=== PATIENT | female | born 1990 | race African-American/Black ===

== ENCOUNTER 2021-11-13 13:15 | Emergency (ER) | payer MEDICARE, MEDICAID, SELFPAY ==
[2021-11-13 13:15] VITALS: BP 131/85; PULSE 80; RESP 18; TEMP 36.8; O2SAT 100; BMI 35.9
--- NOTE | 2021-11-13 15:31 | HMH.EDUTC ---
[facility] [place] Disposition Clinical Impression: Abscess of left thigh Disposition: Home, Self-Care Condition on Discharge: Good Instructions: DI for Skin Abscess Additional Instructions: Keep the affected area clean. Follow up with your regular doctor. Take the antibiotics as directed and apply the topical antibiotics as directed. Apply warm wet compresses to the affected area three or four times per day. GO TO THE ER FOR ANY WORSENING SYMPTOMS Prescriptions: Sulfamethoxazole/Trimethoprim [Bactrim DS tablet] 1 each PO BID 10 Days #20 tab Transmission Status: Received by [id number] Mupirocin [Bactroban 2% Ointment 22gm tube] 1 applicatio TP TID 7 Days #1 gm Transmission Status: Received by [id number] cephALEXin [cephALEXin 500mg capsule] 500 mg PO Q6H 10 Days #40 cap Transmission Status: Received by [id number] Referrals: Yari Mchugh PA [Primary Care Provider] - Time of Disposition: 15:36 Medical Decision Making - Medical Records Medical records reviewed: No: I reviewed the patient's medical records. - Justo Inquiry Pt receiving controlled substance: No Vital Signs: 11/13/21 13:15 11/13/21 15:43 Temperature 98.2 F 98.2 F Temperature Source Oral Oral Pulse Rate 80 Pulse Rate [Right Radial] 80 Respiratory Rate 18 18 Blood Pressure 131/85 Blood Pressure [Right Arm] 131/85 Blood Pressure Mean [Right Arm] 100 Blood Pressure Source Automatic Cuff Blood Pressure Source [Right Arm] Automatic Cuff Blood Pressure Position Sitting Blood Pressure Position [Right Arm] Sitting 02 Sat by Pulse Oximetry 100 Oxygen Delivery Method Room Air Room Air [facility] [place] HPI - General Stated complaint: injection Time Seen by Provider: 11/13/21 13:35 Mode of Arrival: Ambulatory Source of Information: Patient Limitations: No Limitations Description of Symptoms (Recalled from Triage Doc. by RN): Pt stated that she has a boil on her inner thigh. She noticed it last wednesday and this could be her HS or spider bite. HEENT Symptoms (Recalled from RN notes): No Resp Symptoms (Recalled from RN notes): No Skin Symptoms (Recalled from RN notes): Yes (boil) MS Symptoms (Recalled from RN notes): No Functional Status (Recalled from RN notes): n/a - History of Present Illness Provider Complaint: She states that she has a history of Hidradenitis suppurativa. She has a long history of getting boils on her upper legs. She states that she has one now on her left inner thight that has been present for the past 4 days. She denies nay fever or chills. She states that she usually gets antibiotics and they get better. - Related Data Previous Rx's Medication Instructions Recorded Mupirocin [Bactroban 2% Ointment 1 applicatio TP TID 7 Days #1 gm 11/13/21 22gm tube] Sulfamethoxazole/Trimethoprim 1 each PO BID 10 Days #20 tab 11/13/21 [Bactrim DS tablet] cephALEXin [cephALEXin 500mg 500 mg PO Q6H 10 Days #40 cap 11/13/21 capsule] Allergies Allergy/AdvReac Type Severity Reaction Status Date / Time lamotrigine [From Lamictal] Allergy Verified 11/13/21 15:35 - Worker's Comp Is this a Worker's Comp case?: No [facility] History - Hepatitis A Screen Drug use history?: No High risk sexual behaviors?: No History of sexually transmitted infection?: No Currently employed?: No Childcare worker?: No Do you have indoor plumbing?: Yes Do you have electricity?: Yes Attestation statement:: This patient has been screened for Hepatitis A risk factors. I have reviewed the patient's past medical history: Yes ROS Obtained: Yes All systems reviewed & no additional complaints - Constitutional Constitutional: Denies chills, Denies fever(s) - Eyes Eyes: Denies eye discharge - ENT Ears, Nose, Mouth, and Throat: Denies sore throat - Cardiovascular Cardiovascular: Denies chest pain - Respiratory Respiratory: Denies chest congestion, Denies cough Physical Exam - General
[2021-11-13 15:43] VITALS: BP 131/85; PULSE 80; RESP 18; TEMP 36.8; O2SAT 100
== END 2021-11-13 15:43 | disposition home or self-care (01) ==
PROVIDERS: Emergency Provider Nurse Practitioner Family; PCP Physician Assistant
DX: L02.416 Cutaneous abscess of left lower limb (principal)
CPT/HCPCS: G0463; 99212

== ENCOUNTER 2022-12-10 10:58 | Emergency (ER) | payer MEDICARE, MEDICAID, SELFPAY ==
[2022-12-10 11:10] VITALS: BP 150/93; PULSE 105; RESP 18; TEMP 36.8; O2SAT 100; BMI 40.6
--- NOTE | 2022-12-10 11:15 | EXP.UTC ---
Discharge Plan Disposition Patient Disposition: Home, Self-Care Condition: Good Prescriptions Prescriptions: New levofloxacin [levofloxacin] 500 mg tablet 500 mg PO DAILY Qty: 7 0RF guaifenesin [Mucinex] 600 mg tablet extended release 12hr 600 - 1,200 mg PO BIDP PRN (Reason: Congestion) Qty: 30 0RF promethazine-DM 6.25-15 mg/5 mL Syrup 5 ml PO Q6H PRN (Reason: Cough) Qty: 240 0RF prednisone 10 mg tablet 10 mg PO DIRECTED 9 Days Qty: 21 0RF Rx Instructions: Take 4 tablets daily for 3 days, then take 2 tablets daily for 3 days, then take 1 tablet daily for 3 days, then stop. No Action clarithromycin 500 mg tablet 500 mg PO BID Label Comments: TAKE ONE TABLET BY MOUTH TWICE DAILY FOR 10 DAYS methotrexate sodium 2.5 mg tablet 6 mg PO WEEKLY Label Comments: Take 6 Tablet(s) by mouth once weekly Rx Instructions: wednesday sertraline 25 mg tablet 25 mg PO DAILY Label Comments: Take 1 tablet by mouth every evening folic acid 1 mg tablet 1 mg PO DAILY Label Comments: Take 1 Tablet(s) by mouth everyday hydroxyzine HCl 25 mg tablet 25 mg PO DAILY Label Comments: Take 1 tablet by mouth four times a day methylprednisolone 4 mg tablets,dose pack See Rx Instructions .ROUTE .COMPLEX Label Comments: take as directed daily on package for 6 days Rx Instructions: medrol albuterol sulfate 90 mcg/actuation HFA aerosol inhaler 1 puff INHALATION NEEDED PRN (Reason: .) Label Comments: use two puffs EVERY 4-6 hOURS NEEDED budesonide-formoterol 160-4.5 mcg/actuation HFA aerosol inhaler 1 puff INHALATION DAILY Label Comments: INHALE TWO PUFFS TWICE DAILY DIRECTED levocetirizine 5 mg tablet 5 mg PO DAILY Label Comments: TAKE ONE TABLET BY MOUTH EVERY DAY Humira(CF) Pen 40 mg/0.4 mL pen injector kit See Rx Instructions .ROUTE .COMPLEX Rx Instructions: once every 2 wks Referrals Follow up/Referrals: Yari Mchugh PA [Primary Care Provider] - See instructions Activity Restrictions/Add. Instructions Additional Instructions/Restrictions: Drink plenty of fluids. Take tylenol or ibuprofen for pain or fever. Stop the azithromycin that you are on and then start the levaquin. Take the medications as directed. Follow up with your regular doctor. GO TO THE ER FOR ANY WORSENING SYMPTOMS Don't start the oral steroids until tomorrow, since you had the shot here today. The cough medication (promethazine dm) will make you drowsy, so don't drive or operate heavy machinery after taking it. Clinical Impressions Clinical Impression: Asthma exacerbation Stand Alone Forms Stand Alone Forms: Work/School Release Instructions Patient Instructions: Asthma -- Adult, DI for Asthma -- Adult, Ceftriaxone Injection, Methylprednisolone Injection Discharge ED Provider: Dario Humphreys [facility] General Stated complaint: SOA Time Seen by Provider: 12/10/22 11:15 History of Present Illness Provider Complaint: She states that for the past 5 days she has had worsening chest congestion. She has a history of asthma. She was started on a z-pack 4 days ago by her pcp over a video visit. Related Data Home Medications Medication Instructions Recorded Confirmed adalimumab 40 mg/0.4 mL See Rx Instructions .Route 12/10/22 12/10/22 subcutaneous pen kit (Humira(CF) .COMPLEX . Pen) albuterol sulfate 90 mcg/actuation 1 puff inhalation NEEDED PRN . 12/10/22 12/10/22 aerosol inhaler budesonide-formoterol HFA 160 1 puff inhalation DAILY .; 12/10/22 12/10/22 mcg-4.5 mcg/actuation aerosol inhaler clarithromycin 500 mg tablet 500 mg PO BID . 12/10/22 12/10/22 folic acid 1 mg tablet 1 mg PO DAILY . 12/10/22 12/10/22 hydroxyzine HCl 25 mg tablet 25 mg PO DAILY . 12/10/22 12/10/22 levocetirizine 5 mg tablet 5 mg PO DAILY allergies 12/10/22 12/10/22 m
--- NOTE | 2022-12-10 11:17 | XR_ITS ---
FINAL REPORT CLINICAL HISTORY: SOA, congestion x 1 wk. Hx asthma. COMPARISON: none FINDINGS: Two views of the chest were obtained. The heart size and pulmonary vascularity are within normal limits. The mediastinum is normal. No acute pulmonary abnormality is identified. There is no pneumothorax. The bony thorax is intact. IMPRESSION: No active cardiopulmonary disease. Reviewed, Interpreted and Dictated by Onel Hinkle III, MD Transcribed by Abi Krause Authenticated and . [facility]
[2022-12-10 12:46] VITALS: BP 162/72; PULSE 105; RESP 18; TEMP 36.8; O2SAT 100
== END 2022-12-10 12:45 | disposition home or self-care (01) ==
PROVIDERS: Emergency Provider Nurse Practitioner Family; PCP Physician Assistant
DX: J45.901 Unspecified asthma with (acute) exacerbation (principal); R06.02 Shortness of breath
CPT/HCPCS: 71046; 96372; 99212; 99214; G0463; J0696

== ENCOUNTER 2024-08-17 15:42 | Emergency (ER) | payer BC, MEDICARE, MEDICAID, SELFPAY ==
--- NOTE | 2024-08-17 16:30 | ED_ITS ---
Discharge Plan Disposition Patient Disposition: Home, Self-Care Condition: Good Prescriptions Prescriptions: New amoxicillin 500 mg tablet 500 mg PO TID 10 Days Qty: 30 0RF methylprednisolone 4 mg Tablets,Dose Pack 4 mg PO DIRECTED 6 Days Qty: 21 0RF Rx Instructions: Take 1 pack as directed for 6 days [id number] [Bromfed DM] 2-30-10 mg/5 mL Syrup 5 ml PO Q6H PRN (Reason: Cough) Qty: 240 0RF No Action methotrexate sodium 2.5 mg tablet 6 mg PO WEEKLY Patient Comments: Take 6 Tablet(s) by mouth once weekly Rx Instructions: wednesday sertraline 25 mg tablet 25 mg PO DAILY Patient Comments: Take 1 tablet by mouth every evening hydroxyzine HCl 25 mg tablet 25 mg PO DAILY Patient Comments: Take 1 tablet by mouth four times a day albuterol sulfate 90 mcg/actuation HFA aerosol inhaler 1 puff INHALATION NEEDED PRN (Reason: .) Patient Comments: use two puffs EVERY 4-6 hOURS NEEDED levocetirizine 5 mg tablet 5 mg PO DAILY Patient Comments: TAKE ONE TABLET BY MOUTH EVERY DAY Humira(CF) Pen 40 mg/0.4 mL pen injector kit See Rx Instructions .ROUTE .COMPLEX Rx Instructions: once every 2 wks Referrals Follow up/Referrals: Yari Mchugh PA [Primary Care Provider] - See instructions Activity Restrictions/Add. Instructions Additional Instructions/Restrictions: Drink plenty of fluids. Take tylenol or ibuprofen for pain or fever. Take the medications as directed. Follow up with your regular doctor. GO TO THE ER FOR ANY WORSENING SYMPTOMS Clinical Impressions Clinical Impression: Pharyngitis Stand Alone Forms Stand Alone Forms: Work/School Release Instructions Patient Instructions: Sore Throat, DI for Pharyngitis/Tonsillopharyngitis -- Adult Print Language Print Language: Welsh Discharge ED Provider: Dario Humphreys [facility] General Stated complaint: diff swallowing, body aches, Time Seen by Provider: 08/17/24 16:30 Related Data Home Medications ?Medication ?Instructions ?Recorded ?Confirmed adalimumab 40 mg/0.4 mL See Rx Instructions .Route 12/10/22 08/17/24 subcutaneous pen kit (Humira(CF) .COMPLEX . Pen) albuterol sulfate 90 mcg/actuation 1 puff inhalation NEEDED PRN . 12/10/22 08/17/24 aerosol inhaler hydroxyzine HCl 25 mg tablet 25 mg PO DAILY . 12/10/22 08/17/24 levocetirizine 5 mg tablet 5 mg PO DAILY allergies 12/10/22 08/17/24 methotrexate sodium 2.5 mg tablet 6 mg PO WEEKLY . 12/10/22 08/17/24 sertraline 25 mg tablet 25 mg PO DAILY Depression 12/10/22 08/17/24 Previous Rx's ?Medication ?Instructions ?Recorded amoxicillin 500 mg tablet 500 mg PO TID 10 days #30 tabs 08/17/24 nyvrsceguvyazmp-mzbmjscbqzfrofr-NF 5 ml PO Q6H PRN Cough #240 mL 08/17/24 2 mg-30 mg-10 mg/5 mL oral syrup (Bromfed DM) methylprednisolone 4 mg tablets in 4 mg PO DIRECTED 6 days #21 tabs 08/17/24 a dose pack Allergies Allergy/AdvReac Type Severity Reaction Status Date / Time lamotrigine (From Lamictal) Allergy Verified 12/10/22 11:29 [facility] Disclaimer: The information contained in this section may have been updated after the patient was seen, as this information can be updated by other users. Social History (Updated 12/10/22 @ 15:30 by Dario Humphreys APRN) Smoking Status: Never smoker alcohol intake: never current occupational status: employed and student Travel in the last 8 weeks: None Have you lived/traveled outside [place] in past 30 days?: No Contact w/someone who lives/traveled outside [place] past 30 days?: No Exposure to someone with infectious disease in past 14 days?: No Do you have a fever (greater than 100.4 F or 38 C)?: No Have you tested positive for COVID-19: No Exposed to someone with COVID-19 in past 14 days?: No Do you have a sore throat?: No Do you have a cough?: No Do you have any weakness?: No Do you have any diarrhea?: No Are you experiencing any unusual bleeding?: No Do you have any muscle aches/pain?: Yes Do you have any abdominal pain?: No Are you experiencing loss of taste or smell?: No ROS Obtained: Yes All systems reviewed & no additional complaints except as documented Constitutional Constitutional: Reports chills and Reports fever(s) Eyes Eyes: Denies eye discharge ENT Ears, Nose, Mouth, and Throat: Reports as per HPI Cardiovascular Cardiovascular: Denies chest pain Respiratory Respiratory: Denies chest congestion and Reports cough Gastrointestinal Gastrointestingal: Reports nausea; Denies abdominal pain, constipation, crampin g, diarrhea or vomiting Musculoskeletal Musculoskeletal: Denies arthralgias Integumentary/Breasts Skin/Breast: Denies rash Neurologic Neurologic: Denies paresthesias Physical Exam General General appearance: alert and in no apparent distress Head Head exam: atraumatic, normocephalic and normal inspection Eye Eye exam: Present normal appearance, PERRL and EOMI ENT ENT exam: Present mucous membranes moist and normal external ear exam Expanded ENT Exam TM/Canal exam: Bilateral TM: erythema and bulging Nose exam: Absent sinus tenderness Mouth exam: Present normal external inspection; Absent drooling Teeth exam: Present normal inspection Throat exam: Present tonsillar erythema, tonsillomegaly and tonsillar exudate Neck Neck exam: Present normal inspection, full ROM and trachea midline; Absent tenderness, meningismus or lymphadenopathy Chest Chest inspection: Present normal inspection and symmetric chest wall rise; Absent tenderness Respiratory Respiratory exam: Present normal lung sounds bilaterally; Absent respiratory distress, wheezes, stridor or accessory muscle use Cardiovascular Cardiovascular exam: Present regular rate and normal rhythm; Absent systolic murmur or diastolic murmur Abdominal Exam Abdominal exam: Present soft and normal bowel sounds; Absent distention, tenderness, guarding, rebound or rigidity Extremities Exam Extremities exam: Present normal inspection and normal capillary refill; Absent calf tenderness Back Exam Back exam: Present normal inspection and full ROM; Absent tenderness, CVA tenderness (R) or CVA tenderness (L) Neurological Exam Neurological exam: Present alert, oriented X3 and CN II-XII intact Psychiatric Psychiatric exam: Present normal affect and normal mood Skin Skin exam: Present warm, dry, intact and normal color Medical Decision Making Medical Records Medical records reviewed: No I reviewed the patient's medical records. Screening: Per USPSTF and CDC recommendations, given the prevalence of disease in our region, it is our hospital?s policy to screen for HIV and viral Hepatitis for all patients aged 18 and over and those with ongoing risk factors. Justo Inquiry Pt receiving controlled substance: No Lab Data Lab results reviewed: Yes I reviewed the patient's lab results.
[2024-08-17 16:31] VITALS: BP 132/83; PULSE 98; RESP 16; TEMP 36.8; O2SAT 100; BMI 24.0
[2024-08-17 16:38] LABS: UTC Strep Screen (Rapid) Negative (Negative)
[2024-08-17 16:59] VITALS: BP 132/83; PULSE 98; RESP 16; TEMP 36.8
== END 2024-08-17 17:03 | disposition home or self-care (01) ==
PROVIDERS: Emergency Provider Nurse Practitioner Family; PCP Physician Assistant
DX: J02.9 Acute pharyngitis, unspecified (principal)
CPT/HCPCS: 87880; 99213; G0381

== ENCOUNTER 2024-09-20 12:43 | Emergency (ER) | payer BC, MEDICARE, MEDICAID, SELFPAY ==
[2024-09-20] VITALS (7 sets, daily range): BP systolic 105–121; BP diastolic 76–91; PULSE 77–104; RESP 16; TEMP 36.6–36.9; O2SAT 99–100; BMI 25.4
--- NOTE | 2024-09-20 13:08 | ED_ITS ---
Discharge Plan Disposition Patient Disposition: Home, Self-Care Condition: Good Prescriptions Prescriptions: New ondansetron 4 mg tablet,disintegrating 4 mg PO Q8H PRN (Reason: nausea and vomiting) 4 Days Qty: 12 0RF No Action pilocarpine HCl 5 mg tablet 5 mg PO TIDP PRN (Reason: sjogren) Mounjaro 5 mg/0.5 mL pen injector 5 mg SQ WEEKLY albuterol sulfate 90 mcg/actuation HFA aerosol inhaler 1 puff INHALATION NEEDED PRN (Reason: .) Patient Comments: use two puffs EVERY 4-6 hOURS NEEDED levocetirizine 5 mg tablet 5 mg PO DAILY Patient Comments: TAKE ONE TABLET BY MOUTH EVERY DAY Referrals Follow up/Referrals: Yari Mchugh PA [Primary Care Provider] - See instructions Activity Restrictions/Add. Instructions Additional Instructions/Restrictions: You were evaluated in the emergency department today. Please picker tender your prescription for Zofran and take as needed for nausea and vomiting. Take Tylenol and ibuprofen every 4-6 hours as needed for body aches, pain, fever. Orally hydrate is much as possible. Eat a bland diet until your symptoms have resolved. Follow-up closely with your primary care provider. Return to the emergency department for new or worsening symptoms. Clinical Impressions Clinical Impression: Nausea, vomiting and diarrhea, Hypokalemia Stand Alone Forms Stand Alone Forms: Work/School Release Instructions Patient Instructions: DI for Diarrhea and Traveler's Diarrhea -- Adult, DI for Nausea -- Adult Print Language Print Language: Austrian Discharge ED Provider: Kaycee Conti General Adult HPI General Chief complaint: Nausea/Vomiting/Diarrhea Stated complaint: vomiting diarrhea lower back pain Time Seen by Provider: 09/20/24 12:54 Mode of Arrival: Ambulatory Source of Information: Patient Limitations: No Limitations Description of Symptoms (Recalled from ER Triage Doc. by RN): Patient reports N/V/D for 3 days. History of Present Illness HPI narrative: This patient is a 34-year-old female with a past medical history of Sjogren's, diabetes, asthma and prior cholecystectomy presenting to the emergency department for evaluation with concern for nausea, vomiting, and diarrhea that started Wednesday. Patient states that she is also having some low back pain and generalized abdominal pain. Emesis is nonbloody nonbilious, diarrhea is nonbloody. She is currently on her menstrual period. She denies any localizable abdominal pain to 1 specific area, dysuria, urinary frequency, or other concerns. Related Data Home Medications ?Medication ?Instructions ?Recorded ?Confirmed albuterol sulfate 90 mcg/actuation 1 puff inhalation NEEDED PRN . 12/10/22 09/20/24 aerosol inhaler levocetirizine 5 mg tablet 5 mg PO DAILY allergies 12/10/22 09/20/24 pilocarpine HCl 5 mg tablet 5 mg PO TIDP PRN sjogren 09/20/24 09/20/24 tirzepatide 5 mg/0.5 mL 5 mg SQ WEEKLY type 2 diabetes 09/20/24 09/20/24 subcutaneous pen injector (Josh) Previous Rx's ?Medication ?Instructions ?Recorded ondansetron 4 mg disintegrating 4 mg PO Q8H PRN nausea and 09/20/24 tablet vomiting 4 days #12 tabs Allergies Allergy/AdvReac Type Severity Reaction Status Date / Time lamotrigine (From Lamictal) Allergy Verified 12/10/22 11:29 [facility] Disclaimer: The information contained in this section may have been updated after the patient was seen, as this information can be updated by other users. Medical History (Updated 09/20/24 @ 13:42 by Kaycee Conti DO) Diabetes Sjogren syndrome Seasonal allergies Asthma Social History Smoking Status: Never smoker alcohol intake: never current occupational status: employed and student Travel in the last 8 weeks: None Have you lived/traveled outside [place] in past 30 days?: No Contact w/someone who lives/traveled outside [place] past 30 days?: No Exposure to someone with infectious disease in past 14 days?: No Do you have a fever (greater than 100.4 F or 38 C)?: No Have you tested positive for COVID-19: No Exposed to someone with COVID-19 in past 14 days?: No Do you have a sore throat?: No Do you have a cough?: No Do you have any weakness?: No Do you have any diarrhea?: Yes Are you experiencing any unusual bleeding?: No Do you have any muscle aches/pain?: No Do you have any abdominal pain?: No Are you experiencing loss of taste or smell?: No ROS Obtained: Yes All systems reviewed & no additional complaints except as documented Physical Exam General General appearance: alert and in no apparent distress Head Head exam: atraumatic and normocephalic Eye Eye exam: Present normal appearance, PERRL and EOMI ENT ENT exam: Present normal exam, normal oropharynx, mucous membranes moist and normal external ear exam Neck Neck exam: Present normal inspection, full ROM and trachea midline; Absent tenderness Chest Chest inspection: Present normal inspection and symmetric chest wall rise; Absent tenderness Respiratory Respiratory exam: Present normal lung sounds bilaterally; Absent respiratory distress, wheezes, stridor or accessory muscle use Cardiovascular Cardiovascular exam: Present regular rate and normal rhythm Abdominal Exam Abdominal exam: Present soft; Absent distention, tenderness, guarding or rebound Extremities Exam Extremities exam: Present normal inspection, full ROM and normal capillary refill; Absent tenderness or edema Back Exam Back exam: Present normal inspection and full ROM; Absent tenderness Neurological Exam Neurological exam: Present alert, oriented X3, CN II-XII intact and normal gait; Absent motor sensory deficit Psychiatric Psychiatric exam: Present normal affect and normal mood Skin Skin exam: Present warm and dry Medical Decision Making Medical Records Medical records reviewed: Yes I reviewed the patient's medical records. Screening: Per USPSTF and CDC recommendations, given the prevalence of disease in our region, it is our hospital?s policy to screen for HIV and viral Hepatitis for all patients aged 18 and over and those with ongoing risk factors. Justo Inquiry Pt receiving controlled substance: No Vital Signs: 09/20/24 12:44 09/20/24 13:00 09/20/24 13:30 Temperature 98.5 F Temperature Source Oral Pulse Rate 90 97 H Pulse Rate [Radial] 104 H Respiratory Rate 16 Blood Pressure 115/82 105/76 L Blood Pressure [Right Arm] 119/85 Blood Pressure Mean Blood Pressure Mean [Right Arm] 96 Blood Pressure Source Blood Pressure Source [Right Arm] Automatic Cuff Blood Pressure Position Blood Pressure Position [Right Arm] Sitting 02 Sat by Pulse Oximetry 100 99 100 Oxygen Delivery Method Room Air Room Air Room Air 09/20/24 13:49 09/20/24 14:30 09/20/24 15:00 Temperature Temperature Source Pulse Rate 96 H 100 H 93 H Pulse Rate [Radial] Respiratory Rate Blood Pressure 116/91 H 112/77 121/77 Blood Pressure [Right Arm] Blood Pressure Mean 88 86 Blood Pressure Mean [Right Arm] Blood Pressure Source Blood Pressure Source [Right Arm] Blood Pressure Position Blood Pressure Position [Right Arm] 02 Sat by Pulse Oximetry 99 100 100 Oxygen Delivery Method Room Air Room Air Room Air 09/20/24 15:11 Temperature 97.9 F Temperature Source Oral Pulse Rate 77 Pulse Rate [Radial] Respiratory Rate 16 Blood Pressure 121/77 Blood Pressure [Right Arm] Blood Pressure Mean Blood Pressure Mean [Right Arm] Blood Pressure Source Automatic Cuff Blood Pressure Source [Right Arm] Blood Pressure Position Sitting Blood Pressure Position [Right Arm] 02 Sat by Pulse Oximetry Oxygen Delivery Method Room Air Lab Data Lab results reviewed: Yes I reviewed the patient's lab results. Lab Results 09/20/24 13:08: Urine Color Yellow, Urine Appearance Sl cloudy, Urine pH 6.5, Ur Specific Velpen 1.025, Urine Protein 1+ A, Urine Glucose (UA) Negative, Urine Ketones 1+, Urine Blood 3+ A, Urine Nitrate Negative, Urine Bilirubin 1+ A, Urine Urobilinogen 1.0, Ur Leukocyte Esterase Negative, Urine RBC 50-100, Urine WBC Occasional, Ur Squamous Epith Cells 3-5, Urine Bacteria Trace, Urine Mucus Trace 09/20/24 13:18: WBC 9.7, RBC 4.75, Hgb 13.3, Hct 40.0, MCV 84.2, MCH 28.0, MCHC 33.3, RDW 13.7, Plt Count 333, MPV 9.8, Neut % (Auto) 73.6, Lymph % (Auto) 20.7, [place] % (Auto) 3.9, Eos % (Auto) 1.5, Baso % (Auto) 0.1, Neut # (Auto) 7.1, Lymph # (Auto) 2.0, [place] # (Auto) 0.4, Eos # (Auto) 0.2, Baso # (Auto) 0.0, Sodium 135 L, Potassium 3.2 L, Chloride 100, Carbon Dioxide 32 H, Anion Gap 6.2, BUN 5 L, Creatinine 0.70, Estimated Creat Clear 100, Estimated GFR 95, Est GFR ( Amer) 115, Glucose 100, Calcium 9.2, Magnesium 1.9, Total Bilirubin 0.5, AST 22, ALT 15, Alkaline Phosphatase 94, Total Protein 7.9, Albumin 4.7, Globulin 3.2, Albumin/Globulin Ratio 1.5, Lipase 106, Serum HCG, Qual Negative, HCV Ab DEBI w/Rflx PCR Qn Negative, HIV Ag/Ab Combo Qual Negative 09/20/24 13:18 09/20/24 13:18 Orders (Tests/Meds): ED MEDICATIONS Discontinued Medications Generic Name Dose Route Start Last Admin Trade Name Freq PRN Reason Stop Dose Admin Acetaminophen 1,000 mg 09/20/24 13:07 09/20/24 13:15 Acetaminophen 1,000mg/100ml Vial IV 09/20/24 13:08 1,000 mg ONCE ONE Administration Lactated Ringer's 1,000 mls @ 999 mls/hr 09/20/24 13:07 09/20/24 13:16 Lactated Ringer's 1000 Ml Bag IV 09/20/24 14:07 999 mls/hr .Q1H1M ONE Administration Potassium Chloride/Water 100 mls @ 100 mls/hr 09/20/24 13:53 09/20/24 13:57 Potassium Chloride 10meq/100ml Ivpb IV 09/20/24 14:52 100 mls/hr ONCE ONE Administration Ketorolac Tromethamine 15 mg 09/20/24 13:07 09/20/24 13:15 Ketorolac 30mg/Ml Vial IV 09/20/24 13:08 15 mg ONCE ONE Administration Ondansetron HCl 4 mg 09/20/24 13:07 09/20/24 13:16 Ondansetron 4mg/2ml Vial IV 09/20/24 13:08 4 mg ONCE ONE Administration Potassium Chloride 40 meq 09/20/24 13:41 09/20/24 13:47 Potassium Chloride 20meq Tab PO 09/20/24 13:42 40 meq ONCE ONE Administration Promethazine HCl 25 mg 09/20/24 13:54 09/20/24 13:57 Promethazine Hcl 25mg/Ml 1ml Vial IV 09/20/24 13:55 25 mg ONCE ONE Administration Sodium Chloride 25 ml 09/20/24 13:54 09/20/24 13:57 Sodium Chloride 0.9% 25ml Bag IV 09/20/24 13:55 25 ml ONCE ONE Administration ORDERS Category Date Time Status Complete Blood Count Auto Diff Stat Lab 09/20/24 13:18 Completed Comprehensive Metabolic Panel Stat Lab 09/20/24 13:18 Completed HIV Combo Stat Lab 09/20/24 13:18 Completed Hepatitis C Ab Qual. W/ RFX Stat Lab 09/20/24 13:18 Completed Lipase Stat Lab 09/20/24 13:18 Completed MAG [Magnesium] Stat Lab 09/20/24 13:18 Completed Serum [HCG Qualitative, Serum] Stat Lab 09/20/24 13:18 Completed UA [Urinalysis and Microscopic] Stat Lab 09/20/24 13:08 Completed Medical Decision Narrative: In summary, this patient is a 34-year-old female presenting to the Emergency Department for evaluation of nausea, vomiting, and diarrhea. Differential diagnoses considered include but are not limited to viral gastroenteritis, bacterial gastroenteritis, colitis, dehydration, electrolyte derangements. Ruling out the most morbid conditions drove assessment. It should be noted patient's history includes diabetes, Sjogren's syndrome, asthma which may or may not be at goal therapy. This complicates all aspects of care by increasing patient's risk for morbidity. On exam, the patient is lying in bed in no acute distress with benign abdominal exam. Given the absence of localizable pain or significant tenderness, doubt surgical intra-abdominal pathology. 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 Workup included CBC, CMP, lipase, magnesium, urinalysis, diarrhea panel. Patient was given a bolus of IV fluids as well as IV Zofran, acetaminophen, and Toradol for symptomatic improvement. On reassessment, the patient is resting comfortably. Labs obtained and reassuring with no significant leukocytosis. She does have very mild hyponatremia and hypokalemia, for which I ordered oral replacement of potassium as well as IV fluids. She unfortunately got choked up on the potassium and had vomiting. Given this, I gave her IV Phenergan as well as 1 round of IV potassium. She tolerated this well with no recurrence of vomiting and was able to tolerate oral intake afterward. She is not able to provide stool specimen here. On reassessment, abdominal exam remained benign and she is able to tolerate oral intake. Given this, I feel that she is appropriate for discharge home with diagnosis of gastroenteritis and prescription for Zofran. Strict return precautions were given as well as instructions for close follow-up with primary care. Critical Care Critical Care Time Critical Care Time: No
--- NOTE | 2024-09-20 13:14 | PC.NURSE ---
ROUNDED ON THE PT. THE PT VOICES THAT SHE DOES NOT NEED ANYTHING AT THIS TIME. CALL LIGHT IS WITHIN REACH OF THE PT.
[2024-09-20] MEDS: ACETAMINOPHEN 1,000MG/100ML VIAL 1000 MG IV (13:15)
[2024-09-20] MEDS: KETOROLAC 30MG/ML VIAL 15 MG IV (13:15)
[2024-09-20 13:16] LABS: Microscopic, Urine URINE MICROSCOPIC (MICROSCOPIC)
[2024-09-20] MEDS: ONDANSETRON 4MG/2ML VIAL 4 MG IV (13:16)
[2024-09-20] MEDS: LACTATED RINGERS 1000ML 1,000 ML 999 ML IV (13:16)
[2024-09-20 13:18] LABS: Appearance,Urine SL CLOUDY (Clear); Blood, Urine 3+ (Negative); Color,Urine YELLOW (Yellow); Glucose,Urine (UA) Negative (Negative); Ketones,Urine 1+ (Negative); Leukocyte Esterase,Urine Negative (Negative); Nitrate,Urine Negative (Negative); PH,Urine 6.5 (5.0-8.5); Protein,Urine 1+ (Negative); Specific Gravity, Urine 1.025 (1.005-1.030)
[2024-09-20 13:19] LABS: Bilirubin,Urine 1+ (Negative)
[2024-09-20 13:26] LABS: Bacteria,Urine Trace /lpf; Mucus,Urine Trace /lpf; RBC,Urine 50-100 #/hpf (0-3); WBC,Urine Occasional #/hpf (0-3)
[2024-09-20 13:29] LABS: Basophils % 0.1 % (0.1-2.0); Eosinophils # 0.2 K/mm3 (0.0-0.4); Eosinophils % 1.5 % (0.1-12.0); Hemoglobin 13.3 g/dL (12.2-16.2); Lymphocytes % 20.7 % (10-50); Mean Corpuscular HGB Conc 33.3 g/dL (31.8-35.4); Mean Corpuscular Volume 84.2 fl (81-99); Mean Platelet Volume 9.8 fl (7.4-10.4); Monocytes # 0.4 K/mm3 (0.1-1.0); Monocytes % 3.9 % (1.7-9.3); Neutrophils # 7.1 K/mm3 (1.8-7.8); Neutrophils % 73.6 % (37.0-80.0); Platelet Count 333 K/mm3 (142-424); Red Blood Count 4.75 M/mm3 (4.20-5.40); Red Cell Distribution Width 13.7 % (11.5-17.5); White Blood Count 9.7 K/mm3 (4.8-10.8)
--- NOTE | 2024-09-20 13:38 | PC.NURSE ---
ROUNDED ON THE PT. THE PT VOICES THAT SHE DOES NOT NEED ANYTHING AT THIS TIME. CALL LIGHT IS WITHIN REACH OF THE PT. FAMILY MEMBER IS PRESENT AT THE BEDSIDE.
[2024-09-20 13:40] LABS: Alanine Aminotransferase 15 U/L (12-78); Albumin Level 4.7 g/dl (3.5-5.0); Albumin/Globulin Ratio 1.5 (1.1-1.8); Alkaline Phosphatase 94 U/L (38-126); Anion Gap 6.2 mEq/L (5-15); Aspartate Amino Transferase 22 U/L (14-36); Bilirubin,Total 0.5 mg/dl (0.2-1.3); Blood Urea Nitrogen 5 mg/dl (7-17); Calcium 9.2 mg/dl (8.4-10.2); Carbon Dioxide 32 mmol/L (22.0-30.0); Chloride 100 mmol/L (98-107); Creatinine Clearance Estimated 100 mL/min (50-200); Estimated Glomerular Filt Rate 95 ml/min (>60); GFR (African American) 115 ML/MIN (>60); Globulin 3.2 g/dL (1.3-3.2); Glucose 100 mg/dl (74-100); Lipase 106 U/L (23-300); Magnesium 1.9 mg/dl (1.6-2.3); Potassium 3.2 mmoL/L (3.5-5.1); Sodium 135 mmol/L (136-145); Total Protein,Serum 7.9 g/dl (6.3-8.2)
[2024-09-20 13:42] LABS: HCG Qualitative, Serum Negative (Negative)
[2024-09-20] MEDS: POTASSIUM CHLORIDE 20MEQ TAB 40 MEQ PO (13:47)
[2024-09-20] MEDS: SODIUM CHLORIDE 0.9% 25ML BAG 25 ML IV (13:57)
[2024-09-20] MEDS: KCl 10mEq/100ml 100 ML 100 MEQ IV (13:57)
[2024-09-20] MEDS: PROMETHAZINE HCL 25MG/ML 1ML VIAL 25 MG IV (13:57)
--- NOTE | 2024-09-20 14:23 | PC.NURSE ---
DR DODSON AT BEDSIDE
[2024-09-20 14:24] LABS: HIV Combo NEGATIVE (Negative)
[2024-09-20 14:32] LABS: Hepatitis C Ab Qual. W/ RFX NEGATIVE (Negative)
== END 2024-09-20 15:11 | disposition home or self-care (01) ==
PROVIDERS: Emergency Provider Emergency Medicine; PCP Physician Assistant
DX: E87.6 Hypokalemia (principal); R11.2 Nausea with vomiting, unspecified; R19.7 Diarrhea, unspecified; M54.50 Low back pain, unspecified; R10.84 Generalized abdominal pain
CPT/HCPCS: 80053; 81001; 83690; 83735; 84703; 85025; 86803; 87389; 96365; 96367; 96374; 96375; 99283; J0131; J1885; J2405; J2550; J3480; J7120